=== PATIENT | male | born 1955 | race Caucasian/White ===

== ENCOUNTER 2018-05-06 10:32 | Day surgery (SDC) | payer OTHER ==
[2018-05-01 11:40] VITALS: BMI 33.6
[2018-05-06] MEDS ORDERED: PROPOFOL 20 ML ONE (11:13)
[2018-05-06 12:47] VITALS: PULSE 58; TEMP 98
[2018-05-06 13:19] VITALS: BP 120/64
--- NOTE | 2018-05-08 14:55 | PATH ---
Surgical Pathology Report Patient Name: ELPIDIO MORE [facility]. Rec. #: [id number] /Age/Gender: 1955 (Age: 62) / M Account: [id number] Location: [facility]-ENDOSCOPY Taken: 05/06/2018 Received: 05/06/2018 Reported: 05/08/2018 Physicians: Olivier Weston M.D. Specimen(s) Received BX CECUM Clinical History Family history of polyps Postoperative diagnosis: Polyp Final Diagnosis CECUM, BIOPSY: TUBULAR ADENOMA. Electronically Signed Macarena Fisher M.D. Gross Description Received in formalin, labeled "cecum" is a puente, polypoid portion of soft tissue measuring 0.8 cm. in greatest dimension. The specimen is submitted in toto in one cassette. /05/07/201805/07/2018
== END 2018-05-06 13:22 | disposition home or self-care (01) ==
LOC: FASU-ENDO 10:32
PROVIDERS: ATTEND Internal Medicine Gastroenterology
PROC: 0DBH8ZX Excision of Cecum, Via Natural or Artificial Opening Endoscopic, Diagnostic (ICD-10-PCS; principal; 2018-05-06 12:16)
DX: Z86.010 Personal history of colon polyps (principal); D12.0 Benign neoplasm of cecum; K57.30 Diverticulosis of large intestine without perforation or abscess without bleeding; Z80.0 Family history of malignant neoplasm of digestive organs; Z83.71 Family history of colonic polyps
CPT/HCPCS: 82962; 88305-TC

== ENCOUNTER 2021-07-30 10:16 | Emergency (ER) | payer OTHER, MEDICARE ==
[2021-07-30 10:46] VITALS: BMI 32.1
[2021-07-30] MEDS ORDERED: CASIRIVIMAB/IMDEVIMAB 10 ML in SODIUM CHLORIDE 100 ML IVPB ONE (11:34)
[2021-07-30 13:11] LABS: HEMATOCRIT 42.2 % (35.4-49); HEMOGLOBIN 14.2 GM/dL (11.7-16.9); MCH 29.9 pg (25.7-33.7); MCHC 33.5 g/dl (32.0-35.9); MEAN CELL VOLUME 89.1 fl (80-96); MEAN PLT VOLUME 7.4 fl (7.5-11.1); PLATELET COUNT 185 10^3/uL (134-434); RBC 4.74 M/mm3 (4.00-5.60); RDW 12.8 % (11.9-15.9); WHITE BLOOD COUNT 5.1 K/mm3 (4.0-10.0)
[2021-07-30 13:26] LABS: CHLORIDE 97 mmol/L (98-107); SODIUM 132 mmol/L (136-145)
[2021-07-30 13:29] LABS: CALCIUM 8.8 mg/dL (8.5-10.1)
[2021-07-30 13:30] LABS: ALBUMIN 3.7 g/dl (3.4-5.0); ANION GAP 9 MMOL/L (8-16); BLOOD UREA NITROGEN 21.3 mg/dL (7-18); CO2 25 mmol/L (21-32)
[2021-07-30 13:33] LABS: CREATININE 1.5 mg/dL (0.55-1.3); SGOT/AST 25 U/L (15-37); SGPT/ALT 46 U/L (13-61)
[2021-07-30 13:35] LABS: BILIRUBIN,TOTAL 0.8 mg/dL (0.2-1); TOT PROT 7.5 g/dl (6.4-8.2)
[2021-07-30 13:36] LABS: ALK PHOS 84 U/L (45-117)
[2021-07-30 13:38] LABS: GLUCOSE,RANDOM 405 mg/dL (74-106)
[2021-07-30 15:45] VITALS: BP 128/74; PULSE 104; TEMP 100.7
== END 2021-07-30 15:46 | disposition home or self-care (01) ==
LOC: JER 10:16 → JCOVINFU 10:16
DX: U07.1 COVID-19 (principal); E11.9 Type 2 diabetes mellitus without complications
CPT/HCPCS: 36415; 80053; 82962; 85027; 99284-25; Q0240